=== PATIENT | male | born 1975 ===

== ENCOUNTER → 2018-11-06 | Outpatient (CLI) | payer BC ==
[2018-11-06 12:55] LABS: Basophils # (A) 0.1 k/uL (0-0.2); Basophils % (A) 1 %; Eosinophils # (A) 0.4 k/uL (0-0.7); Eosinophils % (A) 3 %; HGB 14.8 gm/dL (13.0-17.5); Lymphocytes # (A) 2.7 k/uL (1.0-4.8); Lymphocytes % (A) 21 %; MCH 28.3 pg (25.0-35.0); MCHC 32.8 g/dL (31.0-37.0); MCV 86.2 fL (80.0-100.0); Monocytes # (A) 0.8 k/uL (0-1.0); Monocytes % (A) 6 %; Neutrophils # (A) 8.4 k/uL (1.3-7.7); Neutrophils % (A) 67 %; Platelet Count 255 k/uL (150-450); RBC 5.22 m/uL (4.30-5.90); RDW 14.1 % (11.5-15.5); WBC 12.6 k/uL (3.8-10.6)
[2018-11-06 19:02] LABS: African American GFR (CKD) 132.1 (60.0-200.0); Albumin 4.5 g/dL (3.80-4.90); Albumin/Globulin Ratio 1.96 (1.60-3.17); Anion Gap 8.4 mmol/L (4.00-12.00); BUN/Creat Ratio 18.57 Ratio (12.00-20.00); Calcium 9.5 mg/dL (8.7-10.3); Carbon Dioxide 30.6 mmol/L (21.6-31.8); Globulin 2.3 g/dL (1.6-3.3); Total Bilirubin 0.4 mg/dL (0.2-1.2); Total Protein 6.8 g/dL (6.2-8.2)
[2018-11-06 20:06] LABS: Hemoglobin A1C 7.4 % (4.0-6.0)
== END | disposition home or self-care (01) ==
LOC: LABWHC1 11:08
PROVIDERS: ATTEND Podiatrist
DX: E11.628 Type 2 diabetes mellitus with other skin complications (principal); I87.311 Chronic venous hypertension (idiopathic) with ulcer of right lower extremity; L97.311 Non-pressure chronic ulcer of right ankle limited to breakdown of skin
CPT/HCPCS: 36415; 80053; 83036; 84134; 85025

== ENCOUNTER → 2018-11-20 | Outpatient (CLI) | payer BC ==
--- NOTE | 2018-11-26 11:45 | P.ARTDOP ---
Arterial Doppler LOWER EXTREMITY ARTERIAL DOPPLER: DATE OF SERVICE: 11/20/2018 Reason for study: Right leg ulcer. Doppler waveforms: Multiphasic bilaterally throughout. Pulse volume recording: []. Pressure gradients: None. Ankle-brachial indices: Greater than 1 bilaterally. Toe pressures: 136 on the right, 142 on the left Impression: Normal study.
== END | disposition home or self-care (01) ==
LOC: RADUSWWP 09:00
PROVIDERS: ATTEND Podiatrist
DX: E11.628 Type 2 diabetes mellitus with other skin complications (principal); L97.818 Non-pressure chronic ulcer of other part of right lower leg with other specified severity; I87.311 Chronic venous hypertension (idiopathic) with ulcer of right lower extremity; M79.604 Pain in right leg
CPT/HCPCS: 93922

== ENCOUNTER → 2019-09-24 | Outpatient (CLI) | payer BC ==
[2019-09-24 11:04] LABS: Basophils # (A) 0.1 k/uL (0-0.2); Basophils % (A) 1 %; Eosinophils # (A) 0.2 k/uL (0-0.7); Eosinophils % (A) 2 %; HCT 43.4 % (39.0-53.0); HGB 14.1 gm/dL (13.0-17.5); Lymphocytes # (A) 2.4 k/uL (1.0-4.8); Lymphocytes % (A) 22 %; MCH 27.7 pg (25.0-35.0); MCHC 32.5 g/dL (31.0-37.0); MCV 85.3 fL (80.0-100.0); Mean Platelet Volume 6.9; Monocytes # (A) 0.7 k/uL (0-1.0); Monocytes % (A) 7 %; Neutrophils % (A) 66 %; Platelet Count 269 k/uL (150-450); RBC 5.09 m/uL (4.30-5.90); RDW 12.4 % (11.5-15.5); WBC 10.6 k/uL (3.8-10.6)
[2019-09-24 16:38] LABS: African American GFR (CKD) 131.2 (60.0-200.0); Albumin 4.2 g/dL (3.80-4.90); Albumin/Globulin Ratio 1.5 (1.60-3.17); Anion Gap 4.6 mmol/L (4.00-12.00); BUN/Creat Ratio 21.43 Ratio (12.00-20.00); Calcium 9.4 mg/dL (8.7-10.3); Carbon Dioxide 30.4 mmol/L (21.6-31.8); Globulin 2.8 g/dL (1.6-3.3); Non-African American GFR(CKD) 113.2 (60.0-200.0); Potassium 4.5 mmol/L (3.5-5.5); Total Bilirubin 0.4 mg/dL (0.3-1.2)
[2019-09-24 18:43] LABS: Hemoglobin A1C 7.2 % (4.0-6.0)
== END | disposition home or self-care (01) ==
LOC: LABWHC1 09:30
PROVIDERS: ATTEND Surgery Vascular Surgery
DX: E11.42 Type 2 diabetes mellitus with diabetic polyneuropathy (principal); L97.112 Non-pressure chronic ulcer of right thigh with fat layer exposed; I10 Essential (primary) hypertension
CPT/HCPCS: 36415; 80053; 83036; 84134; 85025